=== PATIENT | male | born 1955 | race Caucasian/White ===

== ENCOUNTER → 2022-02-12 | Outpatient (CLI) | payer MEDICARE ==
[~2022-02-12] MED LIST: ASPI325 PO; ASPI81CH PO; Advil Pm Liqui1 EACH PO; Apple Cider Vi300 MG PO; CYCL10 PO; Cinnamon500 MG PO; Dazidox10 MG PO; FISH OIL + D31 EACH PO; GLUC500; GLUCOPHAGE; Garlic1 EAC1 PO; HYDACE5 PO; IBUP600; INVOKANA100 MG PO; JARDIANCE25 MG PO; KRILL OIL500 MG PO; LISHYD1012 PO; LISHYD2012; MAGOXI400 PO; METO25 PO; Magnesium500 M1 PO; QVAR INH; RXCYCL10 PO; RXHYDACE PO; TRADJENTA5 MG; TRADJENTA5 MG PO; TRIHYD253A; UBID10 PO; XIGDUO XR 10 M1 EAC1 PO; ZESTORETIC 20-121 E1 PO
== END | disposition home or self-care (01) ==
LOC: LAB 16:27 → LAB SHORT 16:27
DX: R30.0 Dysuria (principal)
CPT/HCPCS: 87077; 87086; 87186

== ENCOUNTER 2022-07-06 09:07 | Emergency (ER) | payer MEDICARE ==
[~2022-07-06] VITALS: Ht 177.8 cm; Wt 142.0 kg
[2022-07-06 10:09] LABS: BASOPHILS ABSOLUTE AUTO 0.06 K/mm3 (0.00-0.23); BASOPHILS PERCENT AUTO 1 % (0-2); EOSINOPHILS ABSOLUTE AUTO 0.22 K/mm3 (0.00-0.68); EOSINOPHILS PERCENT AUTO 3 % (0-6); Hematocrit 49.2 % (37.0-53.0); Hemoglobin 17.6 g/dL (13.5-17.5); IMMATURE GRAN ABSOLUTE AUTO 0.03 K/mm3 (0.00-0.10); IMMATURE GRAN PERCENT AUTO 0 % (0-1); LYMPHOCYTES ABSOLUTE AUTO 2.45 K/mm3 (0.84-5.20); LYMPHOCYTES PERCENT AUTO 35 % (21-46); MONOCYTES ABSOLUTE AUTO 0.85 K/mm3 (0.16-1.47); MONOCYTES PERCENT AUTO 12 % (4-13); Mean Corpuscular HGB 33.1 pg (26.0-34.0); Mean Corpuscular HGB Conc 35.8 g/dL (31.5-36.5); Mean Corpuscular Volume 93 fL (80-100); Mean Platelet Volume 11.2 fL (9.1-12.4); NEUTROPHILS ABSOLUTE AUTO 3.44 K/mm3 (1.96-9.15); NEUTROPHILS PERCENT AUTO 49 % (41-73); Platelet Count 178 K/mm3 (150-400); RDW Coefficient Variation 14.1 % (11.7-14.2); RDW Standard Deviation 48.4 fL (35.1-46.3); Red Blood Cell Count 5.32 M/mm3 (4.30-5.90); White Blood Cell Count 7.05 K/mm3 (4.00-11.30)
[2022-07-06 10:31] LABS: Albumin, Blood 3.5 g/dL (3.4-5.0); Bilirubin, Total 0.4 mg/dL (0.1-1.0); Bun/Creatinine Ratio 35.6 (12.0-20.0); Calcium, Blood 9.5 mg/dL (8.5-10.1); Creatinine, Blood 0.73 mg/dL (0.60-1.20); Globulin, Blood 3.4 g/dL (2.2-4.0); Potassium, Blood 4.1 mmol/L (3.5-5.5); Total Protein, Blood 6.9 g/dL (6.4-8.2)
[2022-07-06 13:36] VITALS: BP 146/81
== END 2022-07-06 13:30 | disposition home or self-care (01) ==
LOC: ER 09:07
PROVIDERS: Emergency Medicine
DX: R55 Syncope and collapse (principal); R00.2 Palpitations; I10 Essential (primary) hypertension; E11.9 Type 2 diabetes mellitus without complications; Z79.82 Long term (current) use of aspirin; Z79.84 Long term (current) use of oral hypoglycemic drugs; Z79.899 Other long term (current) drug therapy
CPT/HCPCS: 80053; 83735; 84443; 84484; 85025; 93005; 93010

== ENCOUNTER 2024-10-27 08:19 | Day surgery (SDC) | payer MEDICARE, OTHER | END 2024-10-27 23:01 | disposition home or self-care (01) | LOC: RAD 08:19 → CT 10:00 → RAD 23:01 | DX: S46.011A Strain of muscle(s) and tendon(s) of the rotator cuff of right shoulder, initial encounter (principal); X58.XXXA Exposure to other specified factors, initial encounter; E11.9 Type 2 diabetes mellitus without complications; E66.01 Morbid (severe) obesity due to excess calories; Z68.42 Body mass index [BMI] 45.0-49.9, adult; Z79.4 Long term (current) use of insulin; Z95.0 Presence of cardiac pacemaker; Z90.49 Acquired absence of other specified parts of digestive tract | CPT/HCPCS: 20610; 73201; 77002; Q9967 ==